=== PATIENT | male | born 1985 | race Caucasian/White ===

== ENCOUNTER 2025-08-31 10:59 | Emergency (ER) | payer OTHER, MEDICAID ==
[2025-08-31] MEDS: Bacitracin/Neomycin/Polymyxin B Oint 0.9 GM U/D Packet TOP ONE (13:10)
== END 2025-08-31 13:26 | disposition home or self-care (01) ==
LOC: LL.ED 10:59
DX: S61.210A Laceration without foreign body of right index finger without damage to nail, initial encounter (principal); I10 Essential (primary) hypertension; J45.909 Unspecified asthma, uncomplicated; Z86.16 Personal history of COVID-19; Z90.49 Acquired absence of other specified parts of digestive tract; Z91.048 Other nonmedicinal substance allergy status; Z79.899 Other long term (current) drug therapy; W26.8XXA Contact with other sharp object(s), not elsewhere classified, initial encounter
CPT/HCPCS: 12002; 73140; 99283; J0665; J2003